=== PATIENT | female | born 1960 | race Caucasian/White ===

== ENCOUNTER → 2023-05-26 07:54 | Outpatient (CLI) | payer OTHER, SELFPAY ==
[2023-05-26 08:40] LABS: Hematocrit 39.2 % (36-46); Hemoglobin 13.1 g/dL (12.0-16.0); Mean Corpuscular HGB Conc 33.5 % (30-36); Mean Corpuscular Hemoglobin 32.3 PG (26-34); Mean Corpuscular Volume 96.6 fL (80-100); Platelet Count 232 X10^3/uL (150-400); Red Blood Cell Count 4.06 X10^6/uL (4.0-5.2); Red Cell Distribution Width 12.9 % (11.6-14.8); White Blood Cell Count 3.9 X10^3/uL (4.5-11.0)
[2023-05-26 08:50] LABS: Anisocytosis 1+; Neutrophils Absolute Manual 1872 /uL (3000-5900); RBC Morphology Normal Morphology; Total Cells Counted 100
[2023-05-26 09:15] LABS: Alanine Aminotransferase 27 IU/L (<35); Albumin 4.7 g/dL (3.5-5.0); Alkaline Phosphatase 76 U/L (38-126); Aspartate Aminotransferase 30 IU/L (14-36); BUN Creatinine Ratio 19.7 (6-22); Bilirubin Total 0.3 mg/dL (0.2-1.3); Blood Urea Nitrogen 14 mg/dL (7-17); Calcium 10.4 mg/dL (8.4-10.2); Carbon Dioxide 28 mmol/L (22-32); Chloride 107 mmol/L (98-107); Cholesterol 207 mg/dL (140-199); Estimated Glomerular Filt Rate > 60 mL/min (>60); Globulin 2.4 g/dL (1.7-4.1); Glucose 93 mg/dL (80-110); HDL Cholesterol 66 mg/dL (40-60); HEMOLYSIS < 15 (0-50); LDL Cholesterol Calculated 114 mg/dL (<100); Potassium 3.9 mmol/L (3.4-5.1); Sodium 142 mmol/L (137-145); Total Protein 7.1 g/dL (6.3-8.2); Triglycerides 134 mg/dL (35-150)
[2023-05-26 09:34] LABS: TSH w/ Reflex to FT4 2.36 uIU/mL (0.47-4.68)
[2023-05-27 13:10] LABS: Calcium 10.4 mg/dL (8.7-10.3); Parathyroid Hormone, Intact 75 pg/mL (15-65)
== END ==
PROVIDERS: PCP Family Medicine; Referring Provider Family Medicine; Visit Provider Family Medicine
DX: H40.9 Unspecified glaucoma (principal); I10 Essential (primary) hypertension; R00.1 Bradycardia, unspecified; E83.52 Hypercalcemia
CPT/HCPCS: 36415; 80053; 80061; 82310; 83970; 84443; 85025

== ENCOUNTER → 2024-01-04 07:53 | Outpatient (CLI) | payer OTHER, SELFPAY ==
[2024-01-04 08:43] LABS: Add Manual Diff / Slide Review NO; Basophils Absolute Auto 0 /uL (0-100); Basophils Percent Auto 0.4 % (0-2); Eosinophils Absolute Auto 100 /uL (0-450); Hematocrit 39.1 % (36-46); Hemoglobin 13.2 g/dL (12.0-16.0); Lymphocytes Absolute Auto 1500 /uL (1100-4500); Lymphocytes Percent Auto 42.9 % (25-40); Mean Corpuscular HGB Conc 33.8 % (30-36); Mean Corpuscular Volume 97.5 fL (80-100); Monocytes Absolute Auto 300 /uL (0-900); Monocytes Percent Auto 8.2 % (3-14); Neutrophils Absolute Auto 1700 /uL (1500-7000); Neutrophils Percent Auto 46.5 % (50-75); Platelet Count 233 X10^3/uL (150-400); Red Blood Cell Count 4.01 X10^6/uL (4.0-5.2); Red Cell Distribution Width 13.6 % (11.6-14.8); White Blood Cell Count 3.6 X10^3/uL (4.5-11.0)
[2024-01-04 09:03] LABS: Alanine Aminotransferase 20 IU/L (<35); Albumin 4.2 g/dL (3.5-5.0); Albumin Globulin Ratio 1.4 (1.0-2.8); Alkaline Phosphatase 76 U/L (38-126); Aspartate Aminotransferase 27 IU/L (14-36); BUN Creatinine Ratio 17.7 (6-22); Bilirubin Total 0.7 mg/dL (0.2-1.3); Blood Urea Nitrogen 14 mg/dL (7-17); Calcium 10.3 mg/dL (8.4-10.2); Carbon Dioxide 30 mmol/L (22-32); Chloride 106 mmol/L (98-107); Estimated Glomerular Filt Rate > 60 mL/min (>60); Globulin 2.9 g/dL (1.7-4.1); Glucose 113 mg/dL (80-110); HEMOLYSIS < 15 (0-50); Sodium 139 mmol/L (137-145); Total Protein 7.1 g/dL (6.3-8.2)
[2024-01-04 09:34] LABS: TSH w/ Reflex to FT4 2.79 uIU/mL (0.47-4.68)
== END ==
PROVIDERS: PCP Family Medicine; Referring Provider Family Medicine; Visit Provider Family Medicine
DX: E83.52 Hypercalcemia (principal); E78.5 Hyperlipidemia, unspecified; I10 Essential (primary) hypertension; R79.89 Other specified abnormal findings of blood chemistry
CPT/HCPCS: 36415; 80053; 82397; 84443; 85025

== ENCOUNTER → 2024-01-06 08:24 | Outpatient (CLI) | payer OTHER, SELFPAY ==
[2024-01-09 21:15] LABS: Fecal Immunochemical Test Negative (Negative)
== END ==
PROVIDERS: PCP Family Medicine; Referring Provider Family Medicine; Visit Provider Family Medicine
DX: Z12.11 Encounter for screening for malignant neoplasm of colon (principal)
CPT/HCPCS: 82274

== ENCOUNTER → 2024-01-10 18:52 | Outpatient (CLI) | payer OTHER, SELFPAY ==
[2024-01-10 19:36] LABS: Influenza A - CEPHEID Flu A NEGATIVE (NEGATIVE); Influenza B - CEPHEID Flu B NEGATIVE (NEGATIVE); Respiratory Syncytial Virus Negative (Negative)
[2024-01-10 20:24] LABS: COVID-19 CEPHEID 4-PLEX PCR Negative (Negative)
== END ==
PROVIDERS: PCP Family Medicine; Visit Provider Student in an Organized Health Care Education/Training Program
DX: R50.9 Fever, unspecified (principal)
CPT/HCPCS: 0241U

== ENCOUNTER → 2024-01-26 08:37 | Outpatient (CLI) | payer OTHER, SELFPAY ==
--- NOTE | 2024-01-26 08:39 | DI.RAD.S_ITS ---
PROCEDURE: XR CHEST 2V INDICATIONS: Cough TECHNIQUE: 2 views of the chest were acquired. COMPARISON: None. FINDINGS: Surgical changes and devices: None. Lungs and pleura: Lungs appear clear. No pleural effusions or pneumothorax. Mediastinum: Mediastinal contours are normal. Heart size is normal. Bones and chest wall: No suspicious bony abnormalities. Soft tissues appear unremarkable. IMPRESSION: No acute cardiopulmonary abnormality is seen. Dictated by: Tonio Worthy M.D. on 01/26/2024 at 10:30 Approved by: Tonio Worthy M.D. on 01/26/2024 at 10:31
[2024-01-26 09:56] LABS: Hemoglobin A1C% w Est Avg Glu 5.1 % (4.0-6.0)
[2024-01-26 10:09] LABS: Alanine Aminotransferase 31 IU/L (<35); Albumin 4.3 g/dL (3.5-5.0); Albumin Globulin Ratio 1.4 (1.0-2.8); Alkaline Phosphatase 77 U/L (38-126); Aspartate Aminotransferase 26 IU/L (14-36); BUN Creatinine Ratio 16.7 (6-22); Bilirubin Total 0.9 mg/dL (0.2-1.3); Blood Urea Nitrogen 13 mg/dL (7-17); Calcium 10.3 mg/dL (8.4-10.2); Carbon Dioxide 26 mmol/L (22-32); Chloride 108 mmol/L (98-107); Cholesterol 219 mg/dL (140-199); Estimated Glomerular Filt Rate > 60 mL/min (>60); Glucose 127 mg/dL (80-110); HDL Cholesterol 51 mg/dL (40-60); HEMOLYSIS < 15 (0-50); LDL Cholesterol Calculated 134 mg/dL (<100); Potassium 3.6 mmol/L (3.4-5.1); Sodium 139 mmol/L (137-145); Total Protein 7.3 g/dL (6.3-8.2); Triglycerides 171 mg/dL (35-150)
[2024-01-26 11:41] LABS: TSH w/ Reflex to FT4 1.93 uIU/mL (0.47-4.68)
[2024-01-27 17:17] LABS: Calcium 10.4 mg/dL (8.7-10.3); Parathyroid Hormone, Intact 82 pg/mL (15-65)
== END ==
PROVIDERS: PCP Family Medicine; Referring Provider Nurse Practitioner Family; Visit Provider Family Medicine
DX: R05.9 Cough, unspecified (principal); R79.89 Other specified abnormal findings of blood chemistry; R73.03 Prediabetes; I10 Essential (primary) hypertension; E78.5 Hyperlipidemia, unspecified
CPT/HCPCS: 36415; 71046; 80053; 80061; 82310; 83036; 83970; 84443

== ENCOUNTER → 2024-02-09 | Outpatient (CLI) | payer OTHER, SELFPAY ==
--- NOTE | 2024-02-09 15:27 | DI.MG.S_ITS ---
BILATERAL DIGITAL SCREENING MAMMOGRAM 3D/2D WITH CAD: 02/09/2024 CLINICAL: Routine screening. Family history of breast cancer. No prior exams were available for comparison. Both breasts are heterogeneously dense, which may obscure small masses (category c / 51-75% glandular tissue). Current study was also evaluated with a Computer Aided Detection (CAD) system. No significant masses, calcifications, or other findings are seen in either breast. IMPRESSION: NEGATIVE There is no mammographic evidence of malignancy. A 1 year screening mammogram is recommended. Based on Tyrer-Cuzick model (a risk assessment model), the patient's lifetime risk is 25.7% and her 10 year risk is 11.4%. If a patient has an elevated risk, a more comprehensive evaluation should be considered and/or a referral to a genetic counselor. The [place] [employer], [place] [employer], and NCCN Guidelines advise the consideration of Breast MRI as an adjunct to screening mammography in patients whose Lifetime risk to develop breast cancer is 20% or higher. This exam was interpreted at Station ID: [id number]. NOTE: For mammograms, a report in lay terms will be sent to the patient. Approximately 15% of breast malignancies will not be visualized mammographically. In the management of a palpable breast mass, a negative mammogram must not discourage biopsy of a clinically suspicious lesion. Electronically Signed By: Jameson anand/ancelmo:02/14/2024 15:15:31 letter sent: Normal Exam ACR BI-RADS Category 1: Negative 3341F
== END ==
PROVIDERS: PCP Family Medicine; Referring Provider Family Medicine; Visit Provider Family Medicine
DX: Z12.31 Encounter for screening mammogram for malignant neoplasm of breast (principal); Z80.3 Family history of malignant neoplasm of breast; R92.333 Mammographic heterogeneous density, bilateral breasts
CPT/HCPCS: 77063; 77067

== ENCOUNTER 2024-08-27 11:01 | Day surgery (SDC) | payer OTHER, SELFPAY ==
[2024-08-23 07:33] VITALS: BMI 33.1
[2024-08-27] VITALS (17 sets, daily range): BP systolic 126–193; BP diastolic 56–85; PULSE 40–72; RESP 9–20; TEMP 35.8–36.4; O2SAT 97–100; BMI 33.0
[2024-08-27] MEDS: LACTATED RINGERS 1,000 ML 21 ML IV (11:39)
--- NOTE | 2024-08-27 11:58 | PM.PREOP ---
Pre-operative Note Interval Note History & Physical reviewed/Exam performed by Physician: Yes Changes to H&P: No H&P completed within 30 days and has changed as indicated here:: 08/22/24
[2024-08-27] MEDS: CEFAZOLIN 2 GM/100 ML PREMIX 100 ML IV (12:25)
--- NOTE | 2024-08-27 12:45 | SUR.OPER ---
Lithotomy on padded OR bed, head on pillow, arms secured on padded arm boards at <90 degrees abduction. Legs secured in padded yellow fins stirrups.
[2024-08-27] MEDS: BUPIVACAINE 0.25% (PF) 30 ML, EPINEPHrine 0.15 MG INJ (12:52)
[2024-08-27] MEDS: ACETAMINOPHEN 325 MG TABLET 650 MG PO ×3 (13:37→23:21)
[2024-08-27] MEDS: OXYCODONE IR 5 MG TABLET PO ×3 (13:38→21:08)
[2024-08-27] MEDS: ONDANSETRON 4 MG/2 ML INJ IV (13:46)
[2024-08-27] MEDS: HYDROMORPHONE 1 MG INJ IV ×2 (13:52→14:12)
--- NOTE | 2024-08-27 14:15 | EKG_ITS ---
[address] [address] Test Date: 2024-08-27 Pat Name: Rocio Leo Department: Room: 217 Gender: Female Glue Mixer: Kofi KLEIN : 1960 Requested By: Order Number: [id number] Reading MD: Derrick Martinez MD Measurements Intervals [place] Rate: 37 P: 48 MA: 184 QRS: 49 QRSD: 98 T: 18 QT: 550 QTc: 431 Interpretive Statements Critical Test Result: Low HR Marked sinus bradycardia Electronically Signed On 08-28-2024 15:32:46 PST by Derrick Martinez MD
--- NOTE | 2024-08-27 14:18 | EKG_ITS ---
[address] [address] Test Date: 2024-08-27 Pat Name: Rocio Leo Department: Room: Gender: Female Technical Healthcare Consultant: Kofi KLEIN : 1960 Requested By: Order Number: [id number] Reading MD: Derrick Martinez MD Measurements Intervals [place] Rate: 38 P: 6 MS: 192 QRS: 33 QRSD: 96 T: 12 QT: 520 QTc: 413 Interpretive Statements Critical Test Result: Low HR Marked sinus bradycardia Electronically Signed On 08-28-2024 7:19:53 PST by Derrick Martinez MD
--- NOTE | 2024-08-27 14:32 | SUR.PHASEI ---
Bradycardia, pain, urine output: Patient having increased pain to right abdomen. HR 38. Patient is has nausea, dizziness, and tingling in fingers. HR at 45 prior to surgery. Also of note, only small amounts of urine (<20mL in catheter bag) even though patient has had two 16oz glasses of water and 600mL IV fluids. No drainage on peripad, but left abdomen incision site dose have small amount of sero-sanguineous fluid drainage. Dr. Gillis at beside and bladder scan performed. 11mL urine noted in bladder. Dr. Zhao notified of low HR. Ekg obtained. Sinus Bradycardia noted. Dr. Zhao gave glycopyrrolate IV. HR Now 63. bp 171/89. Patient has relief of nausea, tingling in fingers and dizziness. Pain is also decrease. Now, also noting clear yellow urine in tubing of Urinary catheter.
--- NOTE | 2024-08-27 15:12 | PM.GYNOP.1 ---
Operative Date/Time/Diagnoses Date of procedure: 08/27/24 Time of procedure: 13:30 Pre-op diagnosis: [facility] Post-op diagnosis: same Procedure & Clinicians Procedure: Procedures Operation Date: 08/27/24 12:45 Actual Procedure Side Surgeon p Tensionless Vaginal Tape with cystoscopy Sadie Gillis MD Indications: 63-year-old with stress urinary incontinence documented by urodynamics Surgeon: Sadie Gillis Preparatory Technician: Rebecca Vazquez Anesthesia Type: General (LMA) and Local Operative Notes Findings: Increased urethrovesical angle by Valsalva First-degree cystocele First-degree uterine prolapse Closure Type: primary Specimen(s): none Applied: catheter (to continuous drainage) Estimated blood loss (mL): 20 Blood products transfused: none Procedure in detail: The patient was taken to the operating room where she was placed in the dorsal supine position. After adequate general endotracheal anesthesia was achieved, she was placed in the dorsal lithotomy position, and prepped and draped in the usual sterile fashion. A time-out was performed. The midline on the patient's abdomen was marked with a surgical marker as well as 2 cm lateral on either side. The patient was placed flat on the table. A weighted speculum was placed into the vagina. Allis clamps were placed laterally from the mid urethra. 4 cc of 0.25% Marcaine with epinephrine were injected submucosally and a 1.5 cm incision was made. This was dissected out laterally with the Metzenbaum scissors. The bladder was emptied. The rigid catheter was placed into the bladder. With the bladder neck retracted away from the patient's right side by placing the catheter along the patient's right thigh, 10 cc of 0.25% Marcaine with epinephrine were injected with a 20 gauge spinal needle along the proposed path of the TVT. This was repeated on the patient's left side with the bladder neck retracted away from the patient's left side by placing the catheter along the patient's left thigh. The TVT was loaded. A hemostat was placed in the midline where the overlapping plastic sheaths joint. The bladder neck was retracted away from the patient's right side by placing the catheter along the patient's right thigh. Starting on the right side, the TVT was directed toward this the patient's right shoulder. After perforating the urogenital diaphragm the TVT was directed behind the pubic symphysis and came out 2.5 cm from the midline. A 3 mm incision was made. The TVT introducer was grasped with a Dulce Maria. The introducer was removed from the plastic sheath. All of this was repeated on the patient's left side with the bladder neck retracted away from the patient's left side by placing the rigid catheter along the patient's left thigh. The bladder was filled and a cystoscopy was performed. There was a small piece of TVT introducer visible on the patient's left side. The bladder was emptied. The TVT introducer was retracted and redirected on the patient's left side and the procedure repeated on the patient's left side. A cystoscopy was again performed and no TVT was visible in the bladder. The TVT introducers were pulled up through the abdomen above the pubic symphysis so that the TVT was approximately 3-4 mm from the urethra. The introducers were removed. A hemostat was placed on each plastic sheath. The midline hemostat was removed from the TVT plastic sheath. A pickup was placed between the urethra and the TVT. The plastic sheaths were removed with care not to over tighten the TVT. The TVT was cut below the skin line abdominally. In the vagina. 3-0 Vicryl was used where thick a running suture to close the mucosa, with care not to include the TVT. The urine was slightly blood-tinged at the end of the case. A Cedeno catheter was placed and hooked to continuous drainage. Sponge, lap, and instrument counts were correct x2. The patient tolerated the procedure well, and was taken to PACU in stable condition. Complications: other (Left cystotomy) Post-operative Condition: stable Disposition: PACU Plan for aftercare: To Acute Care after recovery
--- NOTE | 2024-08-27 17:29 | PC.NURSE ---
Pt arrived to the floor ar 1535 via [facility]. Pt was able to transfer from [facility] into the hospital bed with assistance from staff. Pt is A&Ox4. Pt oriented to the room, how to use the call light, and dinner tray was ordered for her. Pt was informed of shift change reports being given at bedside. Sent the pt's home meds home with her .
[2024-08-27] MEDS: DOCUSATE 100 MG CAPSULE 200 MG PO (20:12)
[2024-08-27] MEDS: DORZOLAMIDE/TIMOLOL OPHTH 10 ML 1 DROPS EYE-BOTH (20:12)
[2024-08-27] MEDS: IBUPROFEN 600 MG TABLET PO (20:13)
[2024-08-28] MEDS: IBUPROFEN 600 MG TABLET PO (01:23)
[2024-08-28 01:27] VITALS: BP 110/53; PULSE 60; TEMP 36.3; O2SAT 97
[2024-08-28 04:00] VITALS: BP 127/55; PULSE 61; RESP 20; TEMP 36.4; O2SAT 95
[2024-08-28 06:30] LABS: Add Manual Diff / Slide Review NO; Basophils Absolute Auto 0 /uL (0-100); Basophils Percent Auto 0.1 % (0-2); Eosinophils Absolute Auto 0 /uL (0-450); Hemoglobin 13.1 g/dL (12.0-16.0); Lymphocytes Absolute Auto 1100 /uL (1100-4500); Mean Corpuscular HGB Conc 34.5 % (30-36); Mean Corpuscular Volume 98.4 fL (80-100); Monocytes Absolute Auto 400 /uL (0-900); Monocytes Percent Auto 5.3 % (3-14); Neutrophils Absolute Auto 5200 /uL (1500-7000); Neutrophils Percent Auto 77.6 % (50-75); Platelet Count 231 X10^3/uL (150-400); Red Blood Cell Count 3.87 X10^6/uL (4.0-5.2); Red Cell Distribution Width 13.7 % (11.6-14.8); White Blood Cell Count 6.7 X10^3/uL (4.5-11.0)
[2024-08-28 06:38] LABS: Blood Urea Nitrogen 15 mg/dL (7-17); Calcium 10.2 mg/dL (8.4-10.2); Carbon Dioxide 22 mmol/L (22-32); Chloride 103 mmol/L (98-107); Estimated Glomerular Filt Rate > 60 mL/min (>60); Glucose 129 mg/dL (80-110); HEMOLYSIS < 15 (0-50); Potassium 3.8 mmol/L (3.4-5.1); Sodium 132 mmol/L (137-145)
[2024-08-28 08:00] VITALS: BP 134/70; PULSE 49; RESP 16; TEMP 36.3; O2SAT 98
[2024-08-28] MEDS: DORZOLAMIDE/TIMOLOL OPHTH 10 ML 1 DROPS EYE-BOTH (08:15)
[2024-08-28] MEDS: DOCUSATE 100 MG CAPSULE 200 MG PO (08:15)
[2024-08-28] MEDS: hydroCHLOROthiazide 25 MG TABLET 12.5 MG PO (08:16)
[2024-08-28] MEDS: ACETAMINOPHEN 325 MG TABLET 650 MG PO (08:16)
[2024-08-28] MEDS: OXYCODONE IR 5 MG TABLET PO (10:38)
--- NOTE | 2024-08-28 12:23 | PC.NURSE ---
Pt is ready for discharge home with Spouse. IV and Tele have been removed. Went over d/c instructions with Pt-discussed d/c meds, time of last dose, reviewed stroke education, s/s of infection, no lifting >10 pounds, walsh care and leg bag teaching and follow up. Pt denied further questions and will be taken out via w/c by WAFER FABRICATOR to POV with Spouse and all belongings.
--- NOTE | 2024-08-28 13:21 | CM.DANOTE ---
B DCP Assessment Note pt is a 63yo F here POD1 from tensionless vaginal tape with [facility] REAL ESTATE EXECUTIVE ASSISTANT reviewed EMR. per chart, pt lives in [facility] with spouse Mirza, is indep at baseline. per RN, pt doing well post op and plans to dc home today. no obvious CM needs Pt left prior to being seen by this REAL ESTATE EXECUTIVE ASSISTANT. No identified barriers to safe dc home from chart review/RN report. CM team will continue to follow as needed MALATHI Culver Discharge Planning/Care Management Advanced directive, confirm from FAMILY Start: 08/27/24 16:10 Freq: Q24H Status: Discharge Protocol: Document 08/27/24 16:44 MS (Rec: 08/27/24 16:51 MS [id number]) Advance Directive, confirm on record Time 16:51 Person contacted pt Copy received No Advanced directive available on record No CM Discharge Assessment Start: 08/28/24 13:20 Freq: Status: Active Protocol: Document 08/28/24 13:20 SL (Rec: 08/28/24 13:21 SL [id number]) Discharge Planning Assessment Assigned Communications Analyst MALATHI Lala DPOA/Assigned Designee Name Mirza, spouse Contact Information [phone] Advance Directives? Yes Advance Directives on File No History Provided By Patient,Family Member Prior Living Arrangements House Household Members spouse Independent with ADL's Yes Is patient alert and oriented? Yes Barriers to Discharge No Discharge Plan Home Transportation Arrangement family in POV Referrals Initiated None needed Review Status In Process Please Provide Date Initial DC 08/28/24 Assessment Was Performed Next Review Type Continued Stay Review Pre-Anesthesia Assessment Start: 08/23/24 07:33 Freq: Status: Discharge Protocol: Document 08/23/24 07:33 LB (Rec: 08/23/24 07:40 LB [id number]) Pre-Anesthesia Assessment PAC Comment 08/23/24 Chart review. Patient Information Reviewed Via Chart Review Diagnostic Results BMP/CMP,CBC Comment 01/26/24 & 01/04/24 at . Primary Care Provider Hal Cespedes Seen Specialist in Last 12 Months Yes Specialist Seen General surgeon Primary Language [place] Preferred Language [place] Publications Distribution Clerk Required No Height 165.1 cm Weight 90.265 kg Body Mass Index (BMI) 33.1 Anesthesia Review Requested No Coding Support Specialist No Smoking Status Never smoker Is patient on oxygen? No Hx Sleep Apnea No Currently Taking a Beta Jon No Anti-Coagulant Therapy No Cardiac Testing No Hx Pacemaker/ICD No Cardiac Clearance Received Not Applicable Bladder Pattern Incontinent, Stress Diabetes Prediabetes Patient No Lactating No Marital Status Lives With spouse Patient Discharge Plan Description Return Home Emergency Contact Name Mirza Leo - Emergency Contact
== END 2024-08-28 12:50 | disposition home or self-care (01) ==
LOC: OR 11:02 → AC 15:32
PROVIDERS: PCP Family Medicine; Referring Provider Obstetrics & Gynecology; Visit Provider Obstetrics & Gynecology
PROC: 0TSD0ZZ Reposition Urethra, Open Approach (ICD-10-PCS; CPT 57288; principal; 2024-08-27 12:45)
DX: N39.3 Stress incontinence (female) (male) (principal)
CPT/HCPCS: 57288; 36415; 80048; 85025; 93005; 93010; G0378; C1771; J0171; J0690; J1100; J1171; J2405; J2704; J3010

== ENCOUNTER → 2024-08-31 11:22 | Outpatient (CLI) | payer OTHER, SELFPAY ==
[2024-08-27 15:38] VITALS: BMI 33.0
== END ==
PROVIDERS: PCP Family Medicine; Visit Provider Obstetrics & Gynecology
DX: R31.9 Hematuria, unspecified (principal); R30.0 Dysuria
CPT/HCPCS: 87086

== ENCOUNTER → 2024-09-11 15:59 | Outpatient (CLI) | payer OTHER, SELFPAY ==
[2024-08-27 15:38] VITALS: BMI 33.0
[2024-09-11 16:20] LABS: Add Manual Diff / Slide Review NO; Basophils Absolute Auto 0 /uL (0-100); Basophils Percent Auto 0.5 % (0-2); Eosinophils Absolute Auto 100 /uL (0-450); Eosinophils Percent Auto 2.6 % (2-4); Hematocrit 39.6 % (36-46); Hemoglobin 13.4 g/dL (12.0-16.0); Lymphocytes Absolute Auto 2000 /uL (1100-4500); Lymphocytes Percent Auto 45.8 % (25-40); Mean Corpuscular HGB Conc 33.8 % (30-36); Mean Corpuscular Hemoglobin 33.6 PG (26-34); Mean Corpuscular Volume 99.4 fL (80-100); Monocytes Absolute Auto 300 /uL (0-900); Monocytes Percent Auto 6.9 % (3-14); Neutrophils Absolute Auto 1900 /uL (1500-7000); Neutrophils Percent Auto 44.2 % (50-75); Platelet Count 273 X10^3/uL (150-400); Red Blood Cell Count 3.99 X10^6/uL (4.0-5.2); Red Cell Distribution Width 13.2 % (11.6-14.8); White Blood Cell Count 4.3 X10^3/uL (4.5-11.0)
[2024-09-11 16:38] LABS: Hemoglobin A1C% w Est Avg Glu 5.2 % (4.0-6.0)
[2024-09-11 16:51] LABS: Alanine Aminotransferase 103 IU/L (<35); Albumin 4.8 g/dL (3.5-5.0); Albumin Globulin Ratio 1.9 (1.0-2.8); Alkaline Phosphatase 97 U/L (38-126); Aspartate Aminotransferase 81 IU/L (14-36); BUN Creatinine Ratio 20.5 (6-22); Bilirubin Total 0.7 mg/dL (0.2-1.3); Blood Urea Nitrogen 17 mg/dL (7-17); Calcium 11.2 mg/dL (8.4-10.2); Carbon Dioxide 29 mmol/L (22-32); Chloride 104 mmol/L (98-107); Cholesterol 235 mg/dL (140-199); Estimated Glomerular Filt Rate > 60 mL/min (>60); Globulin 2.5 g/dL (1.7-4.1); Glucose 132 mg/dL (80-110); HDL Cholesterol 66 mg/dL (40-60); HEMOLYSIS < 15 (0-50); LDL Cholesterol Calculated 111 mg/dL (<100); Potassium 4.6 mmol/L (3.4-5.1); Sodium 139 mmol/L (137-145); Total Protein 7.3 g/dL (6.3-8.2); Triglycerides 288 mg/dL (35-150)
[2024-09-11 17:08] LABS: Free T4, Direct Thyroxine 0.88 ng/dL (0.78-2.19)
[2024-09-11 17:22] LABS: Thyroid Stimulating Hormone 0.921 uIU/mL (0.47-4.68)
[2024-09-14 17:36] LABS: Parathyroid Hormone, Intact 57 pg/mL (15-65)
== END ==
PROVIDERS: PCP Family Medicine; Referring Provider Family Medicine; Visit Provider Family Medicine
DX: R79.89 Other specified abnormal findings of blood chemistry (principal); R73.03 Prediabetes; E83.52 Hypercalcemia; R00.1 Bradycardia, unspecified
CPT/HCPCS: 36415; 80053; 80061; 82310; 83036; 83970; 84439; 84443; 85025

== ENCOUNTER → 2024-12-21 08:30 | Outpatient (CLI) | payer OTHER, SELFPAY ==
[2024-08-27 15:38] VITALS: BMI 33.0
[2024-12-21 09:32] LABS: Add Manual Diff / Slide Review NO; Basophils Absolute Auto 0 /uL (0-100); Basophils Percent Auto 0.4 % (0-2); Eosinophils Absolute Auto 100 /uL (0-450); Eosinophils Percent Auto 2.4 % (2-4); Hematocrit 39.2 % (36-46); Hemoglobin 13.4 g/dL (12.0-16.0); Lymphocytes Absolute Auto 1500 /uL (1100-4500); Lymphocytes Percent Auto 42.7 % (25-40); Mean Corpuscular HGB Conc 34.1 % (30-36); Mean Corpuscular Hemoglobin 33.1 PG (26-34); Monocytes Absolute Auto 300 /uL (0-900); Monocytes Percent Auto 8.9 % (3-14); Neutrophils Absolute Auto 1600 /uL (1500-7000); Neutrophils Percent Auto 45.6 % (50-75); Platelet Count 248 X10^3/uL (150-400); Red Blood Cell Count 4.04 X10^6/uL (4.0-5.2); White Blood Cell Count 3.4 X10^3/uL (4.5-11.0)
[2024-12-21 09:54] LABS: Hemoglobin A1C% w Est Avg Glu 4.8 % (4.0-6.0)
[2024-12-21 10:06] LABS: Alanine Aminotransferase 82 IU/L (<35); Albumin 4.6 g/dL (3.5-5.0); Albumin Globulin Ratio 1.9 (1.0-2.8); Alkaline Phosphatase 76 U/L (38-126); Aspartate Aminotransferase 75 IU/L (14-36); BUN Creatinine Ratio 13.3 (6-22); Blood Urea Nitrogen 11 mg/dL (7-17); Calcium 10.5 mg/dL (8.4-10.2); Carbon Dioxide 23 mmol/L (22-32); Chloride 107 mmol/L (98-107); Cholesterol 208 mg/dL (140-199); Estimated Glomerular Filt Rate > 60 mL/min (>60); Globulin 2.4 g/dL (1.7-4.1); Glucose 113 mg/dL (80-110); HDL Cholesterol 62 mg/dL (40-60); HEMOLYSIS < 15 (0-50); LDL Cholesterol Calculated 124 mg/dL (<100); Lipase 100 U/L (23-300); Potassium 3.8 mmol/L (3.4-5.1); Sodium 142 mmol/L (137-145); Triglycerides 110 mg/dL (35-150)
[2024-12-23 10:12] LABS: Calcium 10.6 mg/dL (8.7-10.3); Parathyroid Hormone, Intact 89 pg/mL (15-65)
== END ==
PROVIDERS: PCP Family Medicine; Referring Provider Internal Medicine Cardiovascular Disease; Visit Provider Internal Medicine Cardiovascular Disease
DX: E78.5 Hyperlipidemia, unspecified (principal); R79.89 Other specified abnormal findings of blood chemistry
CPT/HCPCS: 36415; 80053; 80061; 82310; 83036; 83690; 83970; 85025

== ENCOUNTER → 2025-02-28 13:00 | Outpatient (CLI) | payer OTHER, SELFPAY ==
[2024-08-27 15:38] VITALS: BMI 33.0
--- NOTE | 2025-02-28 13:01 | DI.MG.S_ITS ---
MM screening mammo BI: 02/28/2025. BI-RADS: 1 CLINICAL: 64-year old female for bilateral screening mammogram. Tyrer-Cuzick lifetime risk of 25.7%. Current reported family history of breast cancer: mother and paternal aunt's daughter. PRIOR EXAMS 02/09/2024. MAMMOGRAPHY TECHNIQUE: 2D and 3D (tomosynthesis) digital mammographic views obtained, with additional images as needed for full coverage. Current study was also evaluated with a Computer Aided Detection (CAD) system. DENSITY C. The breasts are heterogeneously dense, which may obscure small masses. MAMMOGRAPHY FINDINGS Bilateral: No suspicious mass, asymmetry, microcalcification, or other abnormality seen. IMPRESSION: * No evidence of malignancy. RECOMMENDATIONS Bilateral * According to the Tyrer-Cuzick Risk Assessment Model, based on the information provided your patient has a greater than 20% lifetime risk for developing breast cancer. Consider supplemental screening with breast MRI and participation in a high risk screening program. * Annual screening mammography. OVERALL ASSESSMENT CATEGORY BI-RADS-1: Negative. The [place] [employer] recommends annual screening mammography beginning at age 40 for women with average risk of breast cancer. ELECTRONICALLY SIGNED: Citlali Whitmore M.D. on 03/04/2025 at 01:18:08 AM PT Interpreting Station ID: [id number]
== END ==
PROVIDERS: PCP Family Medicine; Referring Provider Family Medicine; Visit Provider Family Medicine
DX: Z12.31 Encounter for screening mammogram for malignant neoplasm of breast (principal); R92.333 Mammographic heterogeneous density, bilateral breasts; Z80.3 Family history of malignant neoplasm of breast
CPT/HCPCS: 77063; 77067

== ENCOUNTER → 2025-02-28 13:03 | Outpatient (CLI) | payer OTHER, SELFPAY ==
[2024-08-27 15:38] VITALS: BMI 33.0
--- NOTE | 2025-02-28 13:04 | DI.ECHO.S_ITS ---
[facility] : : [address] : : [place] : : [id number] : : Phone: [phone] Echocardiogram Report + + :Name: ULISES COREAS Study Date: 02/28/2025 Height: 65 in : :[facility] ReadingLocation: Weight: 200 lb : : Gender: Female BSA: 2.0 m2 : :: 1960 Age: 64 yrs BP: 153/76 mmHg: :Reason For Study: BRADYCARDIA : :Ordering Physician: NICK, : :NISREEN Heller Performed By: Casey Valencia : :Referring: NISREEN ROMERO : + + Interpretation Summary The ejection fraction is estimated to be 55-60%. Diastolic function could not be accurately assessed due to contradictory data. The left atrium is mildly dilated. The right ventricle is normal in size and function. The right atrium is borderline dilated. There is mild mitral regurgitation. There is mild to moderate aortic regurgitation. Pulmonary artery pressures cannot be estimated because of the lack of a measurable TR jet velocity but the IVC suggests a CVP of around 8 mmHg. Procedure: A two-dimensional transthoracic echocardiogram with color flow and Doppler was performed. The study quality was technically good. There is no prior echocardiogram noted for this patient. Left Ventricle: The left ventricle is normal in size. Left ventricular wall thickness is mildly increased. There is no ventricular septal defect visualized. The ejection fraction is estimated to be 55-60%. There are no focal wall motion abnormalities. Diastolic function could not be accurately assessed due to contradictory data. Right Ventricle: The right ventricle is normal in size and function. Atria: The left atrium is mildly dilated. The right atrium is borderline dilated. There is no Doppler evidence for an interatrial shunt. Mitral Valve: The mitral valve leaflets are slightly calcified. There is mild mitral regurgitation. Aortic Valve: The aortic valve is trileaflet. The aortic valve opens well. The aortic valve is mildly calcified. There is no aortic valve stenosis. There is mild to moderate aortic regurgitation. Tricuspid Valve: The tricuspid valve leaflets are thin and pliable. There is a trace or physiologic amount of tricuspid regurgitation. Pulmonary artery pressures cannot be estimated because of the lack of a measurable TR jet velocity but the IVC suggests a CVP of around 8 mmHg. Pulmonic Valve: The pulmonic valve leaflets are thin and pliable; valve motion is normal. There is no pulmonic valvular regurgitation. Great Vessels: The aortic root is normal size. The dimensions of the ascending aorta are normal. The pulmonary artery is normal size. The IVC is dilated (diameter is greater than 2.1 cm) yet it collapses greater than 50% with a sniff. This suggests a right atrial pressure of 8 mm Hg. Pericardium/ Pleura There is no pericardial effusion. There is no pleural effusion. MMode/2D Measurements & Calculations LVIDd: 5.2 cm LVOT diam: 1.8 cm LVIDs: 3.4 cm Ao root diam: 2.9 cm FS: 33.2 % asc Aorta Diam: 3.6 cm EPSS: 0.76 cm Ao Arch Diam (Prox Trans): 2.3 cm IVSd: 1.0 cm LVPWd: 1.2 cm LV bravo. diameter/BSA (cm/m^2): 2.6 LV sys. diameter/BSA (cm/m^2): 1.7 LA A2 area: 23.1 cm2 RA long axis: 5.4 cm LA A4 area: 18.0 cm2 RA area: 16.7 cm2 LA length (vol): 5.0 cm RA vol: 43.5 ml LA vol: 70.4 ml RA : 22.0 ml/m2 LA vol index: 35.6 ml/m2 IVC diam: 2.2 cm RVD1 (basal): 3.1 cm RVD2 (mid): 2.9 cm TAPSE: 3.0 cm Doppler Measurements & Calculations Ao V2 max: 179.1 cm/sec LVOT Max Rafal: 110.4 cm/sec Ao V2 mean: 122.0 cm/sec LV V1 max P.9 mmHg Ao max P.8 mmHg LV V1 VTI: 25.7 cm Ao mean P.7 mmHg VICTORIA(I,D): 1.4 cm2 Ao V2 VTI: 48.1 cm VICTORIA(V,D): 1.6 cm2 sev ratio: 0.53 VICTORIA indexed to BSA (cm^2/m^2): 0.72 AI P1/2t: 852.1 msec AI dec slope: 162.5 cm/sec2 MV E max rafal: 80.0 cm/sec TR max rafal: 232.6 cm/sec MV A max rafal: 80.6 cm/sec TR max P.6 mmHg MV E/A: 0.99 PA V2 max: 94.7 cm/sec Med Peak E' Rafal: 5.5 cm/sec PA V2 mean: 72.6 cm/sec E/E' med: 14.7 PA mean P.2 mmHg Lat Peak E' Rafal: 8.1 cm/sec PA pr(Accel): 22.5 mmHg E/E' lat: 9.9 E/e' average: 12.3 MV dec time: 0.21 sec SV(LVOT): 68.2 ml Reading Physician:04:56 PM
--- NOTE | 2025-02-28 20:01 | DI.NM.S_ITS ---
DATE OF SERVICE: 02/28/2025 EXERCISE TREADMILL STRESS TEST PROCEDURE PERFORMED: Exercise treadmill stress test without imaging. ORDERING PROVIDER: Nisreen Ragsdale M.D. INDICATIONS: The patient is a 64-year-old female with a long history of sinus bradycardia. FINDINGS: 1. The patient was able to exercise for 8 minutes 1 second on a standard Enzo protocol suggesting very good exercise capacity with an CHANDAN of -20%, achieving 10.1 METS. 2. She had a normal heart rate response to exercise with a resting heart rate of 42 bpm increasing to a maximum of 146 bpm (92% of her predicted maximum). She had a moderate hypertensive blood pressure response to exercise with a resting blood pressure 140/90 increasing to a maximum of 220/100. 3. She had moderate exertional dyspnea but no chest discomfort or other anginal symptoms. 4. Her resting ECG showed sinus bradycardia at [address] segments. With exercise, there were no significant ST-segment shifts or arrhythmias. IMPRESSION: 1. Normal exercise treadmill stress test for ischemia. 2. Very good exercise capacity without angina or arrhythmias. 3. Resting bradycardia with a normal chronotropic response, achieving a maximum heart rate of 146 bpm (92% of her predicted maximum). 4. Moderate hypertensive blood pressure response to exercise with a maximum of 220/100. Rocio Leo - KALEE/anatoly/JEANNETTE doc#: [id number]/job#: [id number] dd: 02/28/2025 17:29:00 dt: 02/28/2025 19:52:00 DICTATING MD/COPIES TO: Dejuan Justin MD; Nisreen Ragsdale M.D. COPIES MNE: YARA;
== END ==
LOC: ECHO 13:03
PROVIDERS: PCP Family Medicine; Referring Provider Internal Medicine Cardiovascular Disease; Visit Provider Internal Medicine Cardiovascular Disease
DX: I08.0 Rheumatic disorders of both mitral and aortic valves (principal); R00.1 Bradycardia, unspecified; R03.0 Elevated blood-pressure reading, without diagnosis of hypertension
CPT/HCPCS: 93017; 93306

== ENCOUNTER → 2025-04-03 08:00 | Outpatient (CLI) | payer OTHER, SELFPAY ==
[2024-08-27 15:38] VITALS: BMI 33.0
[2025-04-03 10:06] LABS: Alanine Aminotransferase 42 IU/L (<35); Albumin 4.3 g/dL (3.5-5.0); Albumin Globulin Ratio 2.3 (1.0-2.8); Alkaline Phosphatase 71 U/L (38-126); Aspartate Aminotransferase 41 IU/L (14-36); BUN Creatinine Ratio 16.5 (6-22); Bilirubin Total 0.8 mg/dL (0.2-1.3); Blood Urea Nitrogen 13 mg/dL (7-17); Calcium 10.5 mg/dL (8.4-10.2); Carbon Dioxide 24 mmol/L (22-32); Chloride 109 mmol/L (98-107); Estimated Glomerular Filt Rate > 60 mL/min (>60); Globulin 1.9 g/dL (1.7-4.1); Glucose 105 mg/dL (70-99); HEMOLYSIS < 15 (0-50); Potassium 4.3 mmol/L (3.4-5.1); Sodium 139 mmol/L (137-145); Total Protein 6.2 g/dL (6.3-8.2)
[2025-04-03 10:29] LABS: TSH w/ Reflex to FT4 2.48 uIU/mL (0.47-4.68)
[2025-04-04 08:09] LABS: Calcium 9.9 mg/dL (8.7-10.3); Parathyroid Hormone, Intact 85 pg/mL (15-65)
== END ==
PROVIDERS: PCP Family Medicine; Referring Provider Family Medicine; Visit Provider Family Medicine
DX: R79.89 Other specified abnormal findings of blood chemistry (principal); E83.52 Hypercalcemia
CPT/HCPCS: 36415; 80053; 82310; 83970; 84443

== ENCOUNTER → 2025-04-04 08:41 | Outpatient (CLI) | payer OTHER, SELFPAY ==
[2024-08-27 15:38] VITALS: BMI 33.0
--- NOTE | 2025-04-04 08:41 | DI.US.S_ITS ---
PROCEDURE: US THYROID INDICATIONS: HYPERCALCEMIA TECHNIQUE: Real-time scanning was performed of the parathyroid and thyroid gland, with image documentation. COMPARISON: None. FINDINGS: Thyroid: Right lobe measures 5.5 x 1.3 by 1.4 cm. Left lobe measures 4.6 x 1.2 x 1.5 cm. Isthmus is 0.3 cm thick. Echotexture is mildly heterogeneous. No dominant mass. Parathyroid: No hypoechoic nodules deep to the thyroid gland to suspect parathyroid adenoma.. IMPRESSION: No sonographic evidence of parathyroid adenoma. If there is still concern for ectopic adenoma, dynamic CT of the neck is recommended for further evaluation. Dictated by: Lindsey Diaz M.D. on 04/04/2025 at 21:57 Approved by: Lindsey Diaz M.D. on 04/04/2025 at 22:00
--- NOTE | 2025-04-04 08:41 | DI.US.S_ITS ---
PROCEDURE: US ABDOMEN LIMITED INDICATIONS: RUQ R/O steatosis of liver TECHNIQUE: Real-time focused scanning was performed of the abdomen, with image documentation. COMPARISON: None. FINDINGS: The liver is normal size with relatively smooth margin. The parenchyma is diffusely hyperechoic and moderately heterogeneous. There is an indistinct area of relative hypoechogenicity in the right hepatic lobe near the liver dome. This measures about 2.0 cm in greatest diameter. No vascular flow. Minor intrahepatic biliary dilatation. The extrahepatic common duct is normal caliber at 5 mm. The gallbladder is normal without stones, sludge, wall thickening, or pericholecystic fluid. The visible portion of the pancreas is normal without ductal dilatation. IMPRESSION: Heterogeneous, hyperechoic liver with a smooth margin suggestive of steatosis versus other intrinsic liver disease. An indistinct 2.0 cm area of relative hypoechogenicity with broad differential diagnosis. Contrast-enhanced liver MRI with Eovist is recommended for further characterization. Normal gallbladder. Mild intrahepatic biliary dilatation, nonspecific. Dictated by: Lindsey Diaz M.D. on 04/04/2025 at 21:53 Approved by: Lindsey Diaz M.D. on 04/04/2025 at 21:57
== END ==
LOC: US 08:41
PROVIDERS: PCP Family Medicine; Referring Provider Family Medicine; Visit Provider Family Medicine
DX: E83.52 Hypercalcemia (principal); R79.89 Other specified abnormal findings of blood chemistry; K83.8 Other specified diseases of biliary tract
CPT/HCPCS: 76536; 76705

== ENCOUNTER 2025-08-30 08:07 | Day surgery (SDC) | payer OTHER, SELFPAY ==
[2024-08-27 15:38] VITALS: BMI 33.0
[2025-08-30 08:46] VITALS: BP 148/81; PULSE 51; RESP 20; TEMP 36.2; O2SAT 100
[2025-08-30] MEDS: LACTATED RINGERS 1,000 ML 42 ML IV (08:46)
--- NOTE | 2025-08-30 08:47 | P.HP_ITS ---
History of Present Illness History of Present Illness Date Patient Seen: 08/30/25 Time Patient Seen: 08:47 Chief complaint: Colonoscopy Narrative: Rocio is a 64 year old woman who presents for her first screening colonoscopy. No known family history of colon cancer. She denies melena or hematochezia. [facility] Medical History Postmenopausal HRT (hormone replacement therapy) Elevated LFTs Sinus bradycardia Elevated parathyroid hormone Pre-diabetes Plantar warts (~1999) Depression (~1990) Ocular migraine (~1985) Fracture (~1972) Foot pain (~2015) Chronic back pain (~1993) Ankle pain (~2017) Chicken pox (~1964) Genital warts (~1984) Fibroids (~2001) Hemorrhoid (~1990) Hypercalcemia Elevated PTHrP level Borderline hyperlipidemia Family history of breast cancer gene mutation in first degree relative Glaucoma (~2015) Bradycardia Acne rosacea (~2021) Hypertension Surgical History Anesthesia Uterine polyp (~2019) Family History Father History of heart disease Hyperlipidemia Hypertension Pacemaker Atrial fibrillation Mother Breast cancer Bone cancer Brother Celiac disease Sister Glaucoma Grandmother Glaucoma Arthritis Grandfather History of heart disease Hyperlipidemia Grandmother Arthritis Social History household members: spouse alcohol intake: current Meds Home Medications and Allergies Home Medications ?Medication ?Instructions ?Recorded ?Confirmed ?Type dorzolamide 22.3 mg-timolol 6.8 1 drp EYE-BOTH BID 08/30/25 History mg/mL eye drops latanoprost 0.005 % eye drops 1 drp EYE-BOTH DAILY 11/0908/30/25 History conj estrogen-medroxyprogesterone 1 tab PO DAILY #84 t abs 06/18/25 08/30/25 Rx 0.3 mg-1.5 mg tablet (Prempro) valsartan 160 mg tablet mg PO High Blood Pressure, H igh 06/18/25 06/18/25 History calc valsartan 80 mg tablet 80 mg PO DAILY 06/18/2508/17 History metronidazole 0.75 % topical gel 1 applic topical BID PRN RQSH #45 08/26/25 08/30/25 Rx grams Allergies Allergy/AdvReac Type Severity Reaction Status Date / Time No Known Drug Allergies Allergy Verified 08/30/25 08:32 Exam Const General: No acute distress Assessment & Plan Assessment and plan (1) Colon cancer screening: Status: Acute Plan Colonoscopy for colon cancer screening Time-Based Coding :: [TOTAL MINUTES] spent with patient and on the chart (including review of chart, obtaining history, exam, reviewing outside data, placing orders, documenting exam and treatment plan, and counseling patient) on [DATE]. PROFEE Expeller Worker Document charge(s): No
--- NOTE | 2025-08-30 09:38 | SUR.OPER ---
CECUM AT 0938
--- NOTE | 2025-08-30 09:49 | P.OP.COLON_ITS ---
Operative Date/Time/Diagnoses Date of procedure: 08/30/25 Time of procedure: 09:49 Pre-op diagnosis: Colon cancer screening Post-op diagnosis: same Procedure & Clinicians Study performed: Colonoscopy Same procedure(s) as scheduled: Yes Surgeon: Espinoza Mena Anesthesia Type: MAC +/- Procedure Notes Procedure in detail: Surgeon: Espinoza Mena MD Anesthesia: Zorina Mingo [employer]NAGER WIND Procedure: The patient was brought to the endoscopy suite, placed in left lateral decubitus position. The patient was connected to monitoring devices. A time-out was performed. Sedation was administered. Once the patient was adequately sedated, a digital rectal exam was performed and was normal. The scope was then inserted and advanced to the cecum where the appendiceal orifice was identified and photographed. The scope was then slowly withdrawn over greater than 6 minutes. The mucosa was thoroughly inspected. No polyps were found. The scope was retroflexed in the rectum. The scope was straightened and removed. The patient was awakened and brought to recovery. Scope withdrawal time: 10 minutes Sedation time: 17 minutes Findings: Normal colon Estimated Blood Loss: 0 Complications: none Post-procedure Recommendations: Colonoscopy in 10 years Disposition: PACU
[2025-08-30 09:53] VITALS: BP 146/78; PULSE 82; RESP 16; TEMP 36.6; O2SAT 98
[2025-08-30 09:57] VITALS: BP 121/73; PULSE 75; RESP 15; O2SAT 99
[2025-08-30 10:01] VITALS: BP 134/79; PULSE 78; RESP 17; O2SAT 100
[2025-08-30] MEDS: ONDANSETRON 4 MG/2 ML INJ IV (10:17)
[2025-08-30 10:36] VITALS: BP 120/74; PULSE 51; RESP 16; TEMP 36.2; O2SAT 98
== END 2025-08-30 10:39 | disposition home or self-care (01) ==
PROVIDERS: PCP Family Medicine; Referring Provider Family Medicine; Visit Provider Surgery
PROC: 0DJD8ZZ Inspection of Lower Intestinal Tract, Via Natural or Artificial Opening Endoscopic (ICD-10-PCS; CPT 45378; principal; 2025-08-30 09:15)
DX: Z12.11 Encounter for screening for malignant neoplasm of colon (principal); R73.03 Prediabetes; I10 Essential (primary) hypertension; E66.9 Obesity, unspecified; Z68.33 Body mass index [BMI] 33.0-33.9, adult
CPT/HCPCS: G0121; J2405; J2704; J7120